=== PATIENT | male | born 1980 | race Two or more races ===

== ENCOUNTER 2016-10-14 11:00 | Emergency (ER) | payer MEDICAID ==
[2016-10-14] MEDS ORDERED: IOPAMIDOL 300 (61%) 100 ML VIAL IV ONE (11:01)
[2016-10-14] MEDS ORDERED: CLINDAMYCIN PHOSPHATE 600 MG/4 ML VIAL ONE (12:51)
[2016-10-14] MEDS ORDERED: SODIUM CHLORIDE 0.9% 100 ML IV ONE (12:51)
[2016-10-14] MEDS ORDERED: DEXAMETHASONE SOD PHOS 10 MG/1 ML VIAL ONE (12:51)
--- NOTE | 2016-10-14 13:18 | CT ---
NECK SOFT TISSUE W/ CON History: Rash with redness under the chin and neck. Comparison: None. Procedure: 1 mm axial images were obtained through the neck following the administration of 100cc's of Isovue-300 intravenous contrast. Stacked reconstructed 3 mm images were then photographed in the axial, coronal and sagittal planes. Findings: Images demonstrate a normal appearance of the visualized intracranial structures. The orbits and retro-orbital structures appear to be intact. The paranasal sinuses appear to be clear. The osseous structures appear to be appropriate. There is no prevertebral soft tissue swelling seen. The posterior pharyngeal soft tissues are normal. The tongue structures appear to be appropriate. The parotid and submandibular glands are normal and symmetric. There is evidence of infiltration of the subcutaneous tissues of the anterior neck below the level of the mandible with deep fluid attenuation changes, located eccentric to the left. Overlying skin thickening is also suggested. There is however no rim-enhancing collection observed to suggest a focal abscess. No significant cervical chain adenopathy is suggested. The vascular structures are appropriate. The thyroid gland is unremarkable. The visualized lung apices are appropriate. Impression: 1. Infiltration of the anterior subcutaneous and deep tissues of the neck inferior to the level of the mandible with deep tissue edematous changes and overlying skin thickening, located eccentric to the left. Considerations include simple edema versus cellulitis. There is no rim-enhancing collection identified to suggest a discrete abscess at this time.
[2016-10-14] MEDS ORDERED: SULFAMETHOXAZOLE 800 MG/TRIMETHOPRIM 160 MG TABLET ONE (14:53)
[2016-10-14] MEDS ORDERED: CEPHALEXIN 500 MG CAPSULE ONE (14:53)
== END 2016-10-14 15:06 | disposition home or self-care (01) ==
LOC: ED 11:00
DX: L03.221 Cellulitis of neck (principal)
CPT/HCPCS: 70491; 96375; 99283; 96365; 99284; A9270 ×2; J1100; J7050; Q9967

== ENCOUNTER 2016-10-15 13:27 | Emergency (ER) | payer MEDICAID ==
[2016-10-15] MEDS ORDERED: IBUPROFEN 600 MG TABLET ONE (15:16)
[2016-10-15] MEDS ORDERED: ACETAMINOPHEN 325 MG TABLET ONE (15:17)
== END 2016-10-15 15:34 | disposition home or self-care (01) ==
LOC: ED 13:27
DX: H10.33 Unspecified acute conjunctivitis, bilateral (principal); R51 Headache
CPT/HCPCS: 99283 ×2; A9270 ×2